=== PATIENT | female | born 1980 | race Asian ===

== ENCOUNTER 2016-09-26 12:37 | Observation (INO) | payer BC ==
[2016-09-27] MEDS ORDERED: PRENCAP61 PO (21:43)
[2016-09-27] MEDS ORDERED: FEXO-42 PO (21:45)
== END 2016-09-26 14:05 | disposition home or self-care (01) | DRG 782 ==
LOC: LDRP 12:37
PROVIDERS: ADMIT Specialist; ATTEND Specialist
DX: O60.10X0 Preterm labor with preterm delivery, unspecified trimester, not applicable or unspecified (principal); O09.529 Supervision of elderly multigravida, unspecified trimester; Z3A.00 Weeks of gestation of pregnancy not specified
CPT/HCPCS: 59025; 76818; 81002; G0378

== ENCOUNTER 2016-09-27 04:24 | Inpatient (IN) | payer BC ==
[~2016-09-27] VITALS: Ht 157.5 cm; Wt 77.1 kg
[2016-09-27] MEDS ORDERED: LACTATED RINGER'S 1,000 ML IV SCH (05:04)
[2016-09-27] MEDS ORDERED: LACT. RINGERS/OXYTOCIN 20UNITS 1,000 ML IV SCH (05:04)
[2016-09-27] MEDS ORDERED: METHYLERGONOVINE MALEATE 0.2 MG/ML AMP IM PRN (05:15)
[2016-09-27] MEDS ORDERED: PHISODERM TOP SOLN 240ML BTL TOP PRN (05:15)
[2016-09-27] MEDS ORDERED: WITCH HAZEL-GLYCERIN PAD TOP PRN (05:15)
[2016-09-27] MEDS ORDERED: DERMOPLAST 60ML BOTTLE TOP PRN (05:15)
[2016-09-27] MEDS ORDERED: NALBUPHINE HCL 10 MG/1ml INJECTION IV PRN (05:15)
[2016-09-27] MEDS ORDERED: LIDOCAINE 2%HCL (LOCAL ANESTH.) INJ 20ML MDV IJ PRN (05:15)
[2016-09-27] MEDS ORDERED: PROMETHAZINE HCL 25 MG/ML 1ML IV PRN (05:15)
[2016-09-27 06:23] LABS: Basophils # (auto) 0 uL; Basophils % (auto) 0.3 % (0.0-2.0); CONDITION Y; Eosinophils # (auto) 0 uL; Hemoglobin 13.6 g/dL (12.2-16.2); Lymphocytes # (auto) 2.3 uL; Lymphocytes % (auto) 18.4 % (10.0-50.0); Mean Corpuscular Hemoglobin 31.6 pg (28.0-32.0); Mean Corpuscular Hgb Conc. 34.1 g/dL (32.0-36.0); Mean Corpuscular Volume 92.5 fL (80.0-100.0); Mean Platelet Volume 9.1 fL (7.4-10.4); Monocytes # (auto) 0.6 uL; Monocytes % (auto) 4.6 % (0.0-12.0); Neutrophils # (auto) 9.4 uL; Neutrophils % (auto) 76.7 % (37.0-80.0); Platelet Count (auto) 181 10^3/uL (140-450); Red Cell Distribution Width 14.3 % (11.6-16.0); White Blood Cell 12.3 10^3/uL (4.4-10.8)
[2016-09-27 06:39] LABS: INR 0.85 (0.9-1.15); Prothrombin Time 9.3 sec (9.37-12.3)
[2016-09-27 06:45] LABS: Albumin 2.5 g/dL (3.4-5.0); Calcium 8.3 mg/dL (8.5-10.1); Potassium 3.5 mmol/L (3.5-5.1)
[2016-09-27] MEDS ORDERED: LIDOCAINE HCL 2 %PF INJ 10ML AMP IJ ONE (07:00)
[2016-09-27] MEDS ORDERED: NALOXONE HCL 0.4 MG/ML VIAL IV ONE (07:00)
[2016-09-27] MEDS ORDERED: fentaNYL CITRATE 100 MCG/2 ML VL IV ONE (07:00)
[2016-09-27] MEDS ORDERED: ePHEDrine SULFATE 50 MG/ML AMP IV ONE (07:00)
[2016-09-27] MEDS ORDERED: fentaNYL W ROPIVACAINE 150 ML EPI SCH (07:00)
[2016-09-27 07:01] LABS: BUN/Creatinine Ratio 9.1; Bilirubin, Total 0.8 mg/dL (0.2-1.0); Total Protein 6.1 g/dL (6.4-8.2)
[2016-09-27 07:27] LABS: Urine Bilirubin Negative (Negative); Urine Color Yellow (Yellow); Urine Glucose Normal (Normal); Urine Ketone Negative (Negative); Urine Nitrite Negative (Negative); Urine RBC 7 /hpf (0 - 4); Urine Squamous Epithelial Cell FEW /hpf (<5); Urine Urobilinogen Normal (Negative)
[2016-09-27 07:28] LABS: Urine Blood 2+ /uL (Negative)
[2016-09-27] MEDS ORDERED: ACETAMINOPHEN 325 MG TAB PO PRN (17:00)
[2016-09-27 18:30] VITALS: BP 142/72
[2016-09-27] MEDS ORDERED: PRENCAP61 PO (21:43)
[2016-09-27] MEDS ORDERED: FEXO-42 PO (21:45)
[2016-09-27] MEDS ORDERED: MEASLES, MUMPS & RUBELLA VAC(MMRII) 0.5ML SC ONE (22:00)
[2016-09-27 23:30] VITALS: BP 119/61
[2016-09-28 04:00] VITALS: BP 129/62
[2016-09-28] MEDS: IBUPROFEN 600 MG TAB PO PRN ×3 (06:41→23:56)
[2016-09-28 06:45] VITALS: BP 120/70
[2016-09-28] MEDS: DOCUSATE CALCIUM 240 MG CAP PO SCH (09:32)
[2016-09-28 12:30] VITALS: BP 116/77
[2016-09-28 16:00] VITALS: BP 116/69
[2016-09-28 19:15] VITALS: BP 115/76
[2016-09-28 23:30] VITALS: BP 141/85
[2016-09-29 04:00] VITALS: BP 115/72
[2016-09-29 07:00] VITALS: BP 124/76
[2016-09-29] MEDS: IBUPROFEN 600 MG TAB PO PRN (07:20)
[2016-09-29] MEDS ORDERED: MEASLES, MUMPS & RUBELLA VAC(MMRII) 0.5ML SC ONE (08:08)
[2016-09-29] MEDS: DOCUSATE CALCIUM 240 MG CAP PO SCH (09:30)
== END 2016-09-29 11:30 | disposition home or self-care (01) | DRG 775 ==
LOC: LDRP 04:24
PROVIDERS: ADMIT Specialist; ATTEND Specialist
PROC: 3E0S3CZ (ICD-10-PCS; principal; 2016-09-27)
PROC: 00HU33Z Insertion of Infusion Device into Spinal Canal, Percutaneous Approach (ICD-10-PCS; 2016-09-27)
PROC: 10E0XZZ Delivery of Products of Conception, External Approach (ICD-10-PCS; 2016-09-28)
PROC: 0KQM0ZZ Repair Perineum Muscle, Open Approach (ICD-10-PCS; 2016-09-28)
DX: O69.81X0 Labor and delivery complicated by cord around neck, without compression, not applicable or unspecified (principal); O70.1 Second degree perineal laceration during delivery; Z37.0 Single live birth; Z3A.38 38 weeks gestation of pregnancy; Z23 Encounter for immunization
CPT/HCPCS: 36415; 51702; 59025; 59409; 62282; 80053; 81001; 81002; 85025; 85610; 85730; 86850; 86900; 86901; 96365; 96366; 96372; J2590; J3010

== ENCOUNTER → 2017-10-03 | Outpatient (CLI) | payer BC ==
[~2017-10-03] MED LIST: FEXO-42 PO; PRENCAP61 PO
[2017-10-03 08:42] LABS: Basophils # (auto) 0.1 uL; Basophils % (auto) 0.7 % (0.0-2.0); Eosinophils # (auto) 0 uL; Eosinophils % (auto) 0.1 % (0.0-7.0); Hematocrit 44.3 % (36.0-46.0); Hemoglobin 15.2 g/dL (12.2-16.2); Lymphocytes # (auto) 2.6 uL; Mean Corpuscular Hemoglobin 30.6 pg (28.0-32.0); Mean Corpuscular Hgb Conc. 34.2 g/dL (32.0-36.0); Mean Corpuscular Volume 89.5 fL (80.0-100.0); Monocytes # (auto) 0.5 uL; Monocytes % (auto) 4.9 % (0.0-12.0); Neutrophils # (auto) 6.2 uL; Neutrophils % (auto) 66.3 % (37.0-80.0); Platelet Count (auto) 237 10^3/uL (140-450); Red Blood Cells 4.95 10^6/uL (4.0-5.20); Red Cell Distribution Width 12.5 % (11.8-14.3); White Blood Cell 9.3 10^3/uL (4.4-10.8)
[2017-10-03 09:32] LABS: Albumin 3.6 g/dL (3.4-5.0); BUN/Creatinine Ratio 19.1; Calcium 8.5 mg/dL (8.5-10.1); Potassium 3.8 mmol/L (3.5-5.1); Total Protein 7.2 g/dL (6.4-8.2)
== END | disposition home or self-care (01) ==
LOC: LAB 08:29
PROVIDERS: ATTEND Internal Medicine Gastroenterology
DX: R53.1 Weakness (principal)
CPT/HCPCS: 36415; 80053; 80061; 84443; 85025

== ENCOUNTER → 2019-01-09 | Outpatient (CLI) | payer BC ==
[2019-01-09 09:21] LABS: Basophils # (auto) 0.2 uL; Basophils % (auto) 2.3 % (0.0-2.0); Eosinophils # (auto) 0 uL; Eosinophils % (auto) 0.5 % (0.0-7.0); Hematocrit 44.8 % (36.0-46.0); Hemoglobin 15.8 g/dL (12.2-16.2); Lymphocytes # (auto) 2.6 uL; Lymphocytes % (auto) 31.2 % (10.0-50.0); Mean Corpuscular Hemoglobin 30.9 pg (28.0-32.0); Mean Corpuscular Hgb Conc. 35.2 g/dL (32.0-36.0); Mean Corpuscular Volume 87.9 fL (80.0-100.0); Monocytes # (auto) 0.3 uL; Monocytes % (auto) 3.9 % (0.0-12.0); Neutrophils # (auto) 5.1 uL; Neutrophils % (auto) 62.1 % (37.0-80.0); Nucleated Red Blood Cells % 0.3 %; Platelet Count (auto) 228 10^3/uL (140-450); Red Cell Distribution Width 12.7 % (11.8-14.3); White Blood Cell 8.3 10^3/uL (4.4-10.8)
[2019-01-09 09:33] LABS: Urine Bacteria NONE SEEN /hpf (None Seen); Urine Blood Negative /uL (Negative); Urine Specific Gravity 1.013 (1.001-1.035); Urine WBC 1 /hpf (0 - 5)
[2019-01-09 09:42] LABS: Albumin 3.8 g/dL (3.4-5.0); Potassium 3.9 mmol/L (3.5-5.1)
[2019-01-09 09:48] LABS: BUN/Creatinine Ratio 15.9; Bilirubin, Total 0.7 mg/dL (0.2-1.0); CRP High Sensitivity 0.06 mg/dL (< 0.3); Calcium 8.6 mg/dL (8.5-10.1); Total Protein 7.2 g/dL (6.4-8.2)
[2019-01-09 09:54] LABS: Free T4 (Free Thyroxine) 0.9 ng/dL (0.89-1.76); T3 Total 1.02 ng/mL (0.60-1.81)
[2019-01-09 09:55] LABS: Free T3 3.28 pg/mL (2.3-4.2)
== END | disposition home or self-care (01) ==
LOC: LAB 08:31
PROVIDERS: ATTEND Internal Medicine
DX: R07.89 Other chest pain (principal); R00.2 Palpitations
CPT/HCPCS: 36415; 80053; 80061; 81001; 82306; 82607; 83036; 84439; 84443; 84480; 84481; 85025; 86141

== ENCOUNTER → 2019-01-14 | Outpatient (CLI) | payer BC ==
[2019-01-14 11:48] VITALS: BP 126/87
== END | disposition home or self-care (01) ==
LOC: XYW 11:38
PROVIDERS: ATTEND Internal Medicine
DX: R00.2 Palpitations (principal); R07.9 Chest pain, unspecified; G43.909 Migraine, unspecified, not intractable, without status migrainosus
CPT/HCPCS: 93017

== ENCOUNTER → 2019-01-23 | Outpatient (CLI) | payer BC | END | disposition home or self-care (01) | LOC: XYW 09:11 | PROVIDERS: ATTEND Internal Medicine | DX: R00.2 Palpitations (principal); R07.9 Chest pain, unspecified | CPT/HCPCS: 93306 ==

== ENCOUNTER 2019-03-28 09:19 | Inpatient (IN) | payer BC ==
[~2019-03-28] VITALS: Ht 157.5 cm; Wt 68.5 kg
[2019-03-28 10:46] LABS: Urine Bacteria NONE SEEN /hpf (None Seen); Urine Blood Negative /uL (Negative); Urine Mucus FEW (None Seen); Urine Specific Gravity 1.013 (1.001-1.035); Urine WBC 20 /hpf (0 - 5)
[2019-03-28 11:07] LABS: Basophils # (auto) 0 uL; Basophils % (auto) 0.4 % (0.0-2.0); Eosinophils # (auto) 0 uL; Eosinophils % (auto) 0.1 % (0.0-7.0); Hematocrit 44.9 % (36.0-46.0); Hemoglobin 15.2 g/dL (12.2-16.2); Lymphocytes # (auto) 2.9 uL; Lymphocytes % (auto) 31.5 % (10.0-50.0); Mean Corpuscular Hemoglobin 31.1 pg (28.0-32.0); Mean Corpuscular Hgb Conc. 33.9 g/dL (32.0-36.0); Mean Corpuscular Volume 91.9 fL (80.0-100.0); Monocytes # (auto) 0.5 uL; Monocytes % (auto) 5.4 % (0.0-12.0); Neutrophils # (auto) 5.8 uL; Neutrophils % (auto) 62.6 % (37.0-80.0); Nucleated Red Blood Cells % 0.2 %; Platelet Count (auto) 237 10^3/uL (140-450); Red Blood Cells 4.89 10^6/uL (4.0-5.20); Red Cell Distribution Width 12.7 % (11.8-14.3); White Blood Cell 9.2 10^3/uL (4.4-10.8)
[2019-03-28 11:23] LABS: INR 0.99 (0.9-1.15); Partial Thromboplastin Time 31.4 sec (23.64-32.05)
[2019-03-28 11:27] LABS: Albumin 3.8 g/dL (3.4-5.0); Calcium 8.4 mg/dL (8.5-10.1); Potassium 4.2 mmol/L (3.5-5.1)
[2019-03-28 11:32] LABS: BUN/Creatinine Ratio 14.8; Bilirubin, Total 1.4 mg/dL (0.2-1.0); Total Protein 7.4 g/dL (6.4-8.2)
[2019-03-28] MEDS ORDERED: MIDAZOLAM HCL 1MG/1ML-2 ML VIAL ONE (12:01)
[2019-03-28] MEDS ORDERED: fentaNYL CITRATE 100 MCG/2 ML VL ONE (12:01)
[2019-03-28] MEDS ORDERED: cefTRIAXone 1GM/50ML D5W 50 ML IV ONE ×2 (12:05→12:15)
[2019-03-28] MEDS ORDERED: ACETAMINOPHEN IV 100 ML IV ONE (12:14)
[2019-03-28] MEDS ORDERED: OXYTOCIN 10UNIT/ML 1ML VIAL ONE (12:33)
[2019-03-28] MEDS ORDERED: FERRIC SUBSULFATE TOPICAL SOLN 30 ML BTL ONE (13:03)
[2019-03-28] MEDS ORDERED: RHO (D) IMMUNE GLOBULIN 300 MCG INJ IM PRN (13:15)
[2019-03-28] MEDS ORDERED: METOCLOPRAMIDE HCL 5MG/ml INJ 2ml VIAL IV PRN (13:30)
[2019-03-28] MEDS ORDERED: HYDROmorphone HCL 2 MG/ML VL IV PRN (13:30)
[2019-03-28 14:05] VITALS: BP 106/70
[2019-03-28] MEDS ORDERED: OXYTOCIN 10 UNIT/ML 10ML VIAL IV ONE (14:09)
== END 2019-03-28 14:10 | disposition home or self-care (01) | DRG 770 ==
LOC: ER 09:19 → EEVIPCON 09:19 → OVERFLOW 09:20
PROVIDERS: ADMIT Obstetrics & Gynecology; ATTEND Obstetrics & Gynecology
PROC: 10D17ZZ Extraction of Products of Conception, Retained, Via Natural or Artificial Opening (ICD-10-PCS; principal; 2019-03-28 12:41)
DX: O02.1 Missed abortion (principal); O08.0 Genital tract and pelvic infection following ectopic and molar pregnancy; O08.89 Other complications following an ectopic and molar pregnancy; Z3A.08 8 weeks gestation of pregnancy
CPT/HCPCS: 36415; 76801; 80053; 81001; 84702; 85025; 85610; 85730; 86850; 86900; 86901; 93005; G0378; J0131; J0696; J2250; J2590